=== PATIENT | female | born 1975 | race Caucasian/White ===

== ENCOUNTER 2017-02-10 08:29 | Emergency (ER) | payer SELFPAY ==
[~2017-02-10] VITALS: Ht 170.2 cm; Wt 93.2 kg
[~2017-02-10 08:29] MED LIST: FERROUS GLUCONA27 MG PO; FLEXERIL 1010 MG/TAB PO; NAPROSYN500 MG PO; NO HOME MEDICATIONS; NORCO 325 MG-51 TAB PO; PREDNISONE20 MG PO; PRENATAL1 TA1 PO; PROAIR HFA0.09 MG/AC IH; PROVENTIL0.09 MG/A1 IH; SINGULAIR 110 MG/TAB PO; SYMBICORT1 AE2 IH; ZITHROMAX Z PA250 MG PO; ZOVIRAX800 MG PO
[2017-02-10 08:35] VITALS: BP 110/65; PULSE 84; TEMP 98.5
[2017-02-10] MEDS ORDERED: PROAIR HFA0.09 MG/AC IH (08:39)
[2017-02-10] MEDS ORDERED: 00186-0372-20 IH (08:39)
== END 2017-02-10 09:45 | disposition home or self-care (01) ==
LOC: COL.ER 08:29
DX: S10.86XA Insect bite of other specified part of neck, initial encounter (principal); W57.XXXA Bitten or stung by nonvenomous insect and other nonvenomous arthropods, initial encounter; J02.9 Acute pharyngitis, unspecified

== ENCOUNTER 2017-03-03 22:58 | Emergency (ER) | payer SELFPAY ==
[~2017-03-03] VITALS: Ht 170.2 cm; Wt 91.8 kg
[~2017-03-03 22:58] MED LIST changes: +00186-0372-20 IH
[2017-03-03 23:07] VITALS: BP 136/67; PULSE 84; TEMP 98
[2017-03-04] MEDS ORDERED: CEPHALEXIN500 M1 PO ×2 (00:57→01:15)
== END 2017-03-04 01:20 | disposition home or self-care (01) ==
LOC: COL.ER 22:58
DX: L02.212 Cutaneous abscess of back [any part, except buttock and flank] (principal); Z23 Encounter for immunization

== ENCOUNTER 2017-06-02 23:42 | Emergency (ER) | payer SELFPAY ==
[~2017-06-02 23:42] MED LIST changes: +CEPHALEXIN500 M1 PO
[2017-06-02 23:49] VITALS: BP 98/55; TEMP 97.6
[2017-06-02] MEDS ORDERED: ONCE DAILY1 TA1 PO (23:53)
[2017-06-03] MEDS ORDERED: NORCO 325 MG-51 TAB PO (00:39)
[2017-06-03] MEDS ORDERED: BACTRIM DS 8001 TAB PO (00:39)
[2017-06-03 01:08] VITALS: PULSE 63
== END 2017-06-03 01:08 | disposition home or self-care (01) ==
LOC: COL.ER 23:42
DX: L02.416 Cutaneous abscess of left lower limb (principal); J45.909 Unspecified asthma, uncomplicated; Z98.890 Other specified postprocedural states; Z87.891 Personal history of nicotine dependence

== ENCOUNTER 2017-08-09 11:03 | Emergency (ER) | payer SELFPAY ==
[~2017-08-09] VITALS: Ht 170.2 cm; Wt 80.9 kg
[~2017-08-09 11:03] MED LIST changes: +BACTRIM DS 8001 TAB PO; +ONCE DAILY1 TA1 PO
[2017-08-09 11:05] VITALS: TEMP 98.2
[2017-08-09] MEDS ORDERED: PROAIR HFA0.09 MG/AC IH (11:09)
[2017-08-09 11:47] VITALS: BP 90/54
[2017-08-09 12:44] VITALS: PULSE 67
== END 2017-08-09 12:44 | disposition home or self-care (01) ==
LOC: COL.ER 11:03
DX: R19.7 Diarrhea, unspecified (principal); J45.909 Unspecified asthma, uncomplicated; Z98.890 Other specified postprocedural states; Z87.891 Personal history of nicotine dependence

== ENCOUNTER → 2017-11-03 | Outpatient (CLI) | payer SELFPAY ==
[2017-11-03 08:14] LABS: HEMATOCRIT 39.3 % (37.0-47.0); HEMOGLOBIN 12.6 g/dl (12.5-16.0); MEAN CELL VOLUME 89 fl (80.0-100.0); MEAN CORPUSCULAR HEMOGLOBIN 29 pg (27.0-31.0); MEAN CORPUSCULAR HGB CONC 32 g/dl (33.0-37.0); MEAN PLATELET VOLUME 10.4 fl (7.4-10.4); PLATELET COUNT 195 K/mm3 (130-400); RED BLOOD COUNT 4.42 M/mm3 (4.10-5.30); REDCELL DISTRIBUTION WIDTH-CV 13.3 % (11.5-14.5)
== END ==
LOC: COL.LAB 07:48
PROVIDERS: Pediatrics Adolescent Medicine
DX: Z86.2 Personal history of diseases of the blood and blood-forming organs and certain disorders involving the immune mechanism (principal)